=== PATIENT | male | born 1990 | race American Indian/Alaskan Native ===

== ENCOUNTER 2019-03-17 10:40 | Emergency (ER) | payer MEDICAID, OTHER ==
[2019-03-17 10:57] VITALS: BP 143/86
[2019-03-17] MEDS ORDERED: BICILLIN L-A IM ONE (11:09)
[2019-03-17] MEDS ORDERED: DECADRON IM ONE (11:09)
--- NOTE | 2019-03-17 12:16 | Emergency Department Report ---
- General Chief complaint: Sore Throat Stated complaint: (L) ARM BREAKOUT Time Seen by Provider: 03/17/19 11:04 Source: patient Mode of arrival: Ambulatory Limitations: No Limitations - History of Present Illness Initial comments: Patient is a 28-year-old gentleman who is presenting with 2-3 days of a rash that is diffuse and involves the palms and soles. Patient states he is very itchy. Patient also notes a sore throat pain with swallowing that is a 6 out of 10 in severity. Patient denies fever cough cold congestion at this time. - Related Data Previous Rx's Medication Instructions Recorded Last Taken Type HYDROcodone/ACETAMINOPHEN 15 ml PO Q6H PRN #150 solution 03/17/19 Unknown Rx [Hydrocodon-Acetamin 7.5-325/15] Triamcinolone Acetonide 60 ml TP BID #1 bottle 03/17/19 Unknown Rx [Triamcinolone 0.1% LOTION] diphenhydrAMINE [Benadryl CAP] 25 mg PO Q8HR PRN #20 capsule 03/17/19 Unknown Rx predniSONE [Deltasone] 20 mg PO QDAY #5 tab 03/17/19 Unknown Rx Allergies Allergy/AdvReac Type Severity Reaction Status Date / Time No Known Allergies Allergy Unverified 03/17/19 10:46 Abscess Boil HPI - HPI Chief Complaint: Sore Throat Stated Complaint: (L) ARM BREAKOUT Time Seen by Provider: 03/17/19 11:04 Home Medications: Previous Rx's Medication Instructions Recorded Last Taken Type HYDROcodone/ACETAMINOPHEN 15 ml PO Q6H PRN #150 solution 03/17/19 Unknown Rx [Hydrocodon-Acetamin 7.5-325/15] Triamcinolone Acetonide 60 ml TP BID #1 bottle 03/17/19 Unknown Rx [Triamcinolone 0.1% LOTION] diphenhydrAMINE [Benadryl CAP] 25 mg PO Q8HR PRN #20 capsule 03/17/19 Unknown Rx predniSONE [Deltasone] 20 mg PO QDAY #5 tab 03/17/19 Unknown Rx Allergies/Adverse Reactions: Allergies Allergy/AdvReac Type Severity Reaction Status Date / Time No Known Allergies Allergy Unverified 03/17/19 10:46 ED Review of Systems ROS: Stated complaint: (L) ARM BREAKOUT Other details as noted in HPI Comment: All other systems reviewed and negative ED Past Medical Hx - Past Medical History Previous Medical History?: Yes Additional medical history: Hx of seizures - Surgical History Past Surgical History?: No - Social History Smoking Status: Never Smoker Substance Use Type: None - Medications Home Medications: Home Medications Medication Instructions Recorded Confirmed Last Taken Type HYDROcodone/ACETAMINOPHEN 15 ml PO Q6H PRN #150 solution 03/17/19 Unknown Rx [Hydrocodon-Acetamin 7.5-325/15] Triamcinolone Acetonide 60 ml TP BID #1 bottle 03/17/19 Unknown Rx [Triamcinolone 0.1% LOTION] diphenhydrAMINE [Benadryl CAP] 25 mg PO Q8HR PRN #20 capsule 03/17/19 Unknown Rx predniSONE [Deltasone] 20 mg PO QDAY #5 tab 03/17/19 Unknown Rx ED Physical Exam - General Limitations: No Limitations General appearance: alert, in no apparent distress - Head Head exam: Present: atraumatic, normocephalic - Eye Eye exam: Present: normal appearance - ENT ENT exam: Present: mucous membranes moist - Expanded ENT Exam Expanded Throat exam: Positive: tonsillar erythema, tonsillomegaly, tonsillar exudate, other (there are ulcerated lesions on the patient's bilateral tonsils) - Neck Neck exam: Present: normal inspection - Respiratory Respiratory exam: Present: normal lung sounds bilaterally. Absent: respiratory distress - Cardiovascular Cardiovascular Exam: Present: regular rate, normal rhythm. Absent: systolic murmur, diastolic murmur, rubs, gallop - GI/Abdominal GI/Abdominal exam: Present: soft, normal bowel sounds - Rectal Rectal exam: Present: deferred - Extremities Exam Extremities exam: Present: normal inspection - Back Exam Back exam: Present: normal inspection - Neurological Exam Neurological exam: Present: alert, oriented X3 - Psychiatric Psychiatric exam: Present: normal affect, normal mood - Skin Skin exam: Present: warm, dry, intact, normal color, rash - Expanded Skin Exam Expanded Type of lesion: Present: rash Distribution of rash: generalized, involves palms/soles Description of rash: Present: erythematous, macular, papular. Absent: vesicular, blisters, confluent, bullous, petechial, purpuic, urticarial, crusting, fluctuant ED Course Vital Signs 03/17/19 10:55 Temperature 97.9 F Pulse Rate 85 Respiratory 16 Rate Blood Pressure 143/86 [Left] O2 Sat by Pulse 100 Oximetry ED Medical Decision Making - Medical Decision Making An RPR has been sent to rule out syphilis. Patient given first dose of Bicillin. Patient likely does have [id number]-cam-mouth disease and the patient was given a shot of Decadron was given MS for symptomatic relief. Patient will be discharged home. Patient is urged to follow-up with medical records in the next 2-3 days regarding his RPR. If is positive he'll need additional dose of Bicillin 1 week. - Differential Diagnosis differential includes [id number]-mouth disease, syphilis, RMSF scabies Critical care attestation.: If time is entered above; I have spent that time in minutes in the direct care of this critically ill patient, excluding procedure time. ED Disposition Clinical Impression: Rash, Pharyngitis Disposition: DC-01 TO HOME OR SELFCARE Is pt being admited?: No Does the pt Need Aspirin: No Condition: Stable Instructions: Acute Rash (ED) Additional Instructions: Please follow up in 2-3 days to get results of your syphilis test. If this test is positive then you would need to have 1 more dose of Bicillin in 1 week. Time of Disposition: 12:14
== END 2019-03-17 12:54 | disposition home or self-care (01) ==
LOC: ED 10:40
DX: J02.9 Acute pharyngitis, unspecified (principal); R21 Rash and other nonspecific skin eruption
CPT/HCPCS: 36415; 86592; 96372; 99283; J0561; J1100